=== PATIENT | female | born 1945 | race Caucasian/White ===

== ENCOUNTER → 2022-03-25 | Outpatient (CLI) | payer MEDICARE, OTHER ==
[~2022-03-25] VITALS: Ht 160 cm; Wt 83.9 kg
== END | disposition home or self-care (01) ==
LOC: Rad HDHVI 12:56 → EDSEX 12:56
PROVIDERS: ATTEND Internal Medicine Cardiovascular Disease
DX: R06.02 Shortness of breath (principal); R42 Dizziness and giddiness; E78.5 Hyperlipidemia, unspecified; I10 Essential (primary) hypertension; Z82.49 Family history of ischemic heart disease and other diseases of the circulatory system
CPT/HCPCS: 78452; 93017; 96374; A9500

== ENCOUNTER → 2022-05-02 | Outpatient (CLI) | payer MEDICARE ==
[2022-05-02 12:23] LABS: Urine Blood Negative /uL (Negative)
[2022-05-02 12:32] LABS: Basophils # (auto) 0.1 10 ^3/uL (0-0.2); Basophils % (auto) 0.9 % (0.0-2.0); Eosinophils # (auto) 0.1 10 ^3/uL (0-0.8); Eosinophils % (auto) 1.8 % (0.0-7.0); Hematocrit 34.1 % (36.0-46.0); Hemoglobin 11.2 g/dL (12.2-16.2); Lymphocytes # (auto) 2.2 10 ^3/uL (0.4-5.4); Lymphocytes % (auto) 30.9 % (10.0-50.0); Mean Corpuscular Hemoglobin 31.9 pg (28.0-32.0); Mean Corpuscular Hgb Conc. 32.8 g/dL (32.0-36.0); Mean Corpuscular Volume 97.2 fL (80.0-100.0); Monocytes # (auto) 0.7 10 ^3/uL (0-1.3); Neutrophils % (auto) 56.4 % (37.0-80.0); Red Blood Cells 3.51 10^6/uL (4.0-5.20); Red Cell Distribution Width 13.8 % (11.8-14.3); White Blood Cell 7.1 10^3/uL (4.4-10.8)
[2022-05-02 12:41] LABS: Albumin 3.3 g/dL (3.4-5.0); Potassium 4.2 mmol/L (3.5-5.1)
[2022-05-02 12:49] LABS: BUN/Creatinine Ratio 13.5; Bilirubin, Total 0.5 mg/dL (0.2-1.0); Calcium 9.1 mg/dL (8.5-10.1); Total Protein 6.6 g/dL (6.4-8.2)
== END | disposition home or self-care (01) ==
LOC: LAB 09:02
PROVIDERS: ATTEND Internal Medicine Cardiovascular Disease
DX: I10 Essential (primary) hypertension (principal); E55.9 Vitamin D deficiency, unspecified; D51.3 Other dietary vitamin B12 deficiency anemia; D64.9 Anemia, unspecified; E11.9 Type 2 diabetes mellitus without complications; R00.2 Palpitations; R53.1 Weakness; R30.0 Dysuria
CPT/HCPCS: 36415; 80053; 80061; 81003; 82306; 82607; 83036; 84439; 84443; 85025; 87086

== ENCOUNTER 2024-01-01 19:12 | Inpatient (IN) | payer MEDICARE, OTHER ==
[~2024-01-01] VITALS: Ht 160 cm; Wt 77.1 kg
[2024-01-01] MEDS: ATROPINE SULF 1 MG/10ml SYR IV ONE (20:03)
[2024-01-01] MEDS: DOPamine 1600MCG/ML D5W 250 ML IV SCH (20:04)
[2024-01-01] MEDS: DOPamine 1600MCG/ML D5W 250 ML IV ONE (20:04)
[2024-01-01 20:08] LABS: Basophils # (auto) 0 10 ^3/uL (0-0.2); Basophils % (auto) 0.7 % (0.0-2.0); Eosinophils # (auto) 0.1 10 ^3/uL (0-0.8); Eosinophils % (auto) 1.3 % (0.0-7.0); Hematocrit 28.4 % (36.0-46.0); Hemoglobin 9.4 g/dL (12.2-16.2); Lymphocytes # (auto) 2.1 10 ^3/uL (0.4-5.4); Mean Corpuscular Hemoglobin 31.8 pg (28.0-32.0); Mean Corpuscular Hgb Conc. 33.1 g/dL (32.0-36.0); Mean Corpuscular Volume 95.8 fL (80.0-100.0); Monocytes # (auto) 0.6 10 ^3/uL (0-1.3); Monocytes % (auto) 8.8 % (0.0-12.0); Neutrophils # (auto) 3.5 10 ^3/uL (1.6-8.6); Neutrophils % (auto) 55.2 % (37.0-80.0); Nucleated Red Blood Cells % 0.3 %; Red Blood Cells 2.97 10^6/uL (4.0-5.20); Red Cell Distribution Width 14.9 % (11.8-14.3); White Blood Cell 6.3 10^3/uL (4.4-10.8)
[2024-01-01 20:15] VITALS: PULSE 61; RESP 22; O2SAT 93
[2024-01-01 20:27] LABS: Alanine Aminotransferase 12 U/L (7-40); Albumin 3.7 g/dL (3.2-4.8); Alkaline Phosphatase 65 U/L (46-116); Anion Gap 7 (5-15); Aspartate Aminotransferase 19 U/L (13-40); BUN/Creatinine Ratio 13.3 (10.0-20.0); Bilirubin, Total 0.5 mg/dL (0.2-1.0); Blood Urea Nitrogen 15 mg/dL (9-23); Calcium 9.2 mg/dL (8.5-10.1); Carbon Dioxide 24 mmol/L (20-30); Chloride 103 mmol/L (98-107); Glucose 116 mg/dL (74-106); Magnesium 1.7 mg/dL (1.6-2.6); Sodium 134 mmol/L (136-145); Total Protein 5.6 g/dL (5.7-8.2)
[2024-01-01 20:29] LABS: INR 1.03 (0.9-1.15); Partial Thromboplastin Time 23.4 SEC (24.5-34.5); Prothrombin Time 10.9 sec (9.3-11.8)
[2024-01-01 20:44] LABS: Acetaminophen < 2.0 UG/ML (10.0-20.0)
[2024-01-01 21:07] LABS: Salicylate < 3.0 mg/dL (2.8-20.0)
[2024-01-01 21:15] LABS: Urine Amorphous Crystal FEW /hpf (None Seen); Urine Bacteria FEW /hpf (None Seen); Urine Blood Negative /uL (Negative); Urine Clarity Clear (Clear); Urine Color Colorless (Yellow); Urine Protein, UAD Negative (Negative); Urine Specific Gravity 1.005 (1.001-1.035); Urine Urobilinogen Normal (Negative); Urine WBC 8 /hpf (0 - 5); Urine pH 6.5 (5.0-9.0)
[2024-01-01] MEDS ORDERED: ONDANSETRON HCL 4 MG/2 ML VIAL IV PRN (21:15)
[2024-01-01] MEDS ORDERED: DOCUSATE SOD 100 MG CAP PO PRN (21:15)
[2024-01-01] MEDS ORDERED: NITROGLYCERIN 0.4 MG SL TAB SL PRN (22:00)
[2024-01-01] MEDS: SODIUM CHLORIDE 0.9% 1,000 ML IV SCH (23:11)
[2024-01-02 05:28] LABS: Basophils # (auto) 0.1 10 ^3/uL (0-0.2); Basophils % (auto) 0.7 % (0.0-2.0); Eosinophils # (auto) 0.1 10 ^3/uL (0-0.8); Hematocrit 34.3 % (36.0-46.0); Hemoglobin 11.6 g/dL (12.2-16.2); Lymphocytes # (auto) 2.2 10 ^3/uL (0.4-5.4); Lymphocytes % (auto) 22.6 % (10.0-50.0); Mean Corpuscular Hemoglobin 32.1 pg (28.0-32.0); Mean Corpuscular Hgb Conc. 33.7 g/dL (32.0-36.0); Mean Corpuscular Volume 95.2 fL (80.0-100.0); Monocytes # (auto) 0.8 10 ^3/uL (0-1.3); Monocytes % (auto) 8.5 % (0.0-12.0); Neutrophils # (auto) 6.5 10 ^3/uL (1.6-8.6); Neutrophils % (auto) 67.2 % (37.0-80.0); Nucleated Red Blood Cells % 0.3 %; Red Blood Cells 3.61 10^6/uL (4.0-5.20); Red Cell Distribution Width 14.9 % (11.8-14.3); White Blood Cell 9.6 10^3/uL (4.4-10.8)
[2024-01-02 05:42] LABS: Alanine Aminotransferase 13 U/L (7-40); Albumin 4.4 g/dL (3.2-4.8); Alkaline Phosphatase 77 U/L (46-116); Anion Gap 9 (5-15); BUN/Creatinine Ratio 13.3 (10.0-20.0); Blood Urea Nitrogen 11 mg/dL (9-23); Calcium 10.1 mg/dL (8.5-10.1); Carbon Dioxide 26 mmol/L (20-30); Chloride 105 mmol/L (98-107); Glucose 115 mg/dL (74-106); Potassium 3.6 mmol/L (3.5-5.1); Sodium 140 mmol/L (136-145)
[2024-01-02 05:43] LABS: Aspartate Aminotransferase 19 U/L (13-40); Bilirubin, Total 0.7 mg/dL (0.2-1.0); Total Protein 6.8 g/dL (5.7-8.2)
[2024-01-02 08:27] VITALS: PULSE 50; RESP 14; O2SAT 95
[2024-01-02 15:20] VITALS: BP 150/66; PULSE 76; RESP 21; TEMP 98.9; O2SAT 98
[2024-01-02] MEDS ORDERED: LOSA-535 PO (16:57)
[2024-01-02] MEDS ORDERED: OMEP1CAP70 PO (16:57)
[2024-01-02] MEDS ORDERED: DILT-29 PO (16:57)
[2024-01-02] MEDS ORDERED: CYCL-614 PO (16:58)
[2024-01-02] MEDS ORDERED: SIMV10TA20 PO (16:58)
[2024-01-02 17:00] VITALS: BP 165/66; PULSE 71; RESP 21; TEMP 98.7; O2SAT 94
[2024-01-02] MEDS: hydrALAZINE HCL 20 MG/ML VL IV ONE (18:40)
[2024-01-02] MEDS: MAGNESIUM SULFATE 1GM/100ML 100 ML IV ONE (18:41)
[2024-01-02 20:00] VITALS: BP 161/64; PULSE 82; PULSE 89; RESP 18; TEMP 98.6; O2SAT 96
[2024-01-02 21:54] VITALS: BP 161/64; PULSE 89; RESP 18; TEMP 98.6; O2SAT 96
[2024-01-02] MEDS: hydrALAZINE HCL 20 MG/ML VL IV PRN (23:53)
[2024-01-02] MEDS: ACETAMINOPHEN 325 MG TAB PO PRN (23:54)
[2024-01-03 05:23] VITALS: BP 147/69; PULSE 91; RESP 18; TEMP 97.9; O2SAT 95
[2024-01-03 06:03] LABS: Anion Gap 8 (5-15); Carbon Dioxide 25 mmol/L (20-30); Chloride 106 mmol/L (98-107); Potassium 3.6 mmol/L (3.5-5.1); Sodium 139 mmol/L (136-145)
[2024-01-03 06:05] LABS: Calcium 9.2 mg/dL (8.5-10.1)
[2024-01-03 06:06] LABS: Basophils # (auto) 0.1 10 ^3/uL (0-0.2); Basophils % (auto) 0.8 % (0.0-2.0); Eosinophils # (auto) 0.1 10 ^3/uL (0-0.8); Eosinophils % (auto) 1.5 % (0.0-7.0); Hematocrit 31.3 % (36.0-46.0); Hemoglobin 10.4 g/dL (12.2-16.2); Lymphocytes # (auto) 2.2 10 ^3/uL (0.4-5.4); Lymphocytes % (auto) 31.6 % (10.0-50.0); Mean Corpuscular Hgb Conc. 33.4 g/dL (32.0-36.0); Mean Corpuscular Volume 95.8 fL (80.0-100.0); Monocytes # (auto) 0.7 10 ^3/uL (0-1.3); Monocytes % (auto) 10.2 % (0.0-12.0); Neutrophils # (auto) 3.8 10 ^3/uL (1.6-8.6); Neutrophils % (auto) 55.9 % (37.0-80.0); Nucleated Red Blood Cells % 0.1 %; Red Blood Cells 3.26 10^6/uL (4.0-5.20); Red Cell Distribution Width 14.9 % (11.8-14.3); White Blood Cell 6.9 10^3/uL (4.4-10.8)
[2024-01-03 06:09] LABS: Glucose 96 mg/dL (74-106)
[2024-01-03 06:10] LABS: Magnesium 1.9 mg/dL (1.6-2.6)
[2024-01-03 07:43] LABS: BUN/Creatinine Ratio 18.8 (10.0-20.0); Blood Urea Nitrogen 15 mg/dL (9-23)
[2024-01-03 08:00] VITALS: PULSE 70
[2024-01-03 09:00] VITALS: BP 155/73; PULSE 88; RESP 18; TEMP 98.1; O2SAT 94
[2024-01-03] MEDS: LOSARTAN POTASSIUM 50 MG TAB PO SCH (10:46)
[2024-01-03] MEDS: hydroCHLOROthiazide 25 MG TAB PO SCH (10:47)
[2024-01-03 12:46] VITALS: BP 168/86; PULSE 70; RESP 18; TEMP 97.9; O2SAT 96
[2024-01-03] MEDS ORDERED: HYDR25TA5 PO (13:09)
== END 2024-01-03 16:40 | disposition home or self-care (01) | DRG 312 ==
LOC: ER 19:12 → EDBD 19:12 → TELE 21:48 → TELE-WESTW 01-02 13:05
PROVIDERS: ADMIT Nurse Practitioner Family; ATTEND Internal Medicine
DX: I95.2 Hypotension due to drugs (principal); I10 Essential (primary) hypertension; E78.5 Hyperlipidemia, unspecified; E66.9 Obesity, unspecified; T50.3X5A Adverse effect of electrolytic, caloric and water-balance agents, initial encounter; Z79.899 Other long term (current) drug therapy; Z88.5 Allergy status to narcotic agent; Z88.2 Allergy status to sulfonamides; Z68.30 Body mass index [BMI] 30.0-30.9, adult; Y92.89 Other specified places as the place of occurrence of the external cause; R00.1 Bradycardia, unspecified
CPT/HCPCS: 36415; 80048; 80053; 80320; 80329; 81001; 83605; 83735; 83880; 84443; 84484; 85025; 85610; 85730; 87040; 93005; 93306; G0378

== ENCOUNTER → 2024-07-16 | Outpatient (CLI) | payer OTHER, MEDICARE ==
[~2024-07-16] MED LIST: CYCL-614 PO; HYDR25TA5 PO; LOSA-535 PO; OMEP1CAP70 PO; SIMV10TA20 PO
== END | disposition home or self-care (01) ==
LOC: LAB 14:39
PROVIDERS: ATTEND Student in an Organized Health Care Education/Training Program
DX: I10 Essential (primary) hypertension (principal); R00.2 Palpitations; E78.5 Hyperlipidemia, unspecified
CPT/HCPCS: 82088; 82533; 83835; 84244

== ENCOUNTER → 2024-07-26 | Outpatient (CLI) | payer OTHER, MEDICARE ==
[2024-07-26 16:36] LABS: Urine Bacteria FEW /hpf (None Seen); Urine Blood Negative /uL (Negative); Urine Clarity Clear (Clear); Urine Color Colorless (Yellow); Urine Protein, UAD Negative (Negative); Urine Specific Gravity 1.005 (1.001-1.035); Urine Urobilinogen Normal (Negative); Urine WBC 1 /hpf (0 - 5)
== END | disposition home or self-care (01) ==
LOC: LAB 15:41
PROVIDERS: ATTEND Student in an Organized Health Care Education/Training Program
DX: I10 Essential (primary) hypertension (principal); R00.2 Palpitations; E78.5 Hyperlipidemia, unspecified
CPT/HCPCS: 81001

== ENCOUNTER 2024-09-14 11:19 | Emergency (ER) | payer OTHER ==
[~2024-09-14] VITALS: Ht 157.5 cm; Wt 67.0 kg
[2024-09-14] MEDS: cloNIDine HCL 0.1 MG TAB PO ONE (11:57)
--- NOTE | 2024-09-14 12:23 | ED.PDOC ---
Musculoskeletal HPI Comments 79 y/o F presents to the ED with CC of s/p fall. Patient states, that this morning around 1000 she went to bring her trash cans in, when she fell and slipped on ice landing on her right wrist. Patient c/o current right wrist pain. Patient denies LOC, hitting her head, or head, neck, and back pain. Chief Complaint: Upper Extremity Time Seen by MD: 12:17 Primary Care Provider: atul Reviewed Notes: Nurses Notes, Medications, Allergies Allergies: Coded Allergies: Codeine (Verified Allergy, Unknown, 03/25/22) Sulfa Antibiotics (Verified Allergy, Unknown, 03/25/22) Home Meds Active Scripts Hydrocodone-Acetaminophen (Hydrocodone Bitartrate/AC 5-325 mg) 1 Tab Tab, 1 TAB PO Q12HP PRN for 5 Days, #10 TAB Prov:ANSHUL WALDROP MD 09/14/24 Hctz (Hydrochlorothiazide) 25 Mg Tab, 25 MG PO DAILY, #30 TAB 5 Refills Prov:NGOZI MCKEON MD 01/03/24 Reported Medications Cyclobenzaprine HCl (Cyclobenzaprine Hydrochlo) 5 Mg Tab, 1 TAB PO BID 01/02/24 Simvastatin (Simvastatin) 10 Mg Tab, 1 TAB PO 01/02/24 Omeprazole (Omeprazole Dr) 20 Mg Cap, 1 CAP PO DAILY 01/02/24 Losartan Potassium (Losartan Potassium) 100 Mg Tab, 1 TAB PO DAILY 01/02/24 Information Source: Patient Mode of Arrival: Wheelchair Location: Right Extremity Location: Wrist Timing: Hours Prehospital treatment: None Severity: Mild Able to Move Extremity: Yes Bear Weight: Limited Pain: Mild Mechanism: None Circumstances: Fall Onset of Symptoms: After Trauma Symptoms: Pain DVT Risk Factors: NONE Associated signs and symptoms: None Past Medical History PAST MEDICAL HISTORY: High Lipids, HTN Surgical History: Hysterectomy CUSTOMER ACCOUNT TECHNICIAN History: No Pertinent CUSTOMER ACCOUNT TECHNICIAN History Family History Family History: Reviewed,noncontributory to illness Social History Smoker: Non-Smoker Alcohol: Occasionally Drugs: Denies Drug Use Lives In: Home Constitutional: denies: chills, diaphoresis, fatigue, fever, malaise, sweats, weakness, others EENTM: denies: blurred vision, double vision, ear bleeding, ear discharge, ear drainage, ear pain, ear ringing, eye pain, eye redness, hearing loss, mouth pain, mouth swelling, nasal discharge, nose bleeding, nose congestion, nose pain, photophobia, tearing, throat pain, throat swelling, voice changes, others Respiratory: denies: cough, hemoptysis, orthopnea, SOB at rest, shortness of breath, SOB with excertion, stridor, wheezing, others Cardiovascular: denies: chest pain, dizzy spells, diaphoresis, Dyspnea on exertion, edema, irregular heart beat, left arm pain, lightheadedness, palpitations, PND, syncope, others Gastrointestinal: denies: abdomen distended, abdominal pain, blood streaked bowels, constipated, diarrhea, dysphagia, difficulty swallowing, hematemesis, melena, nausea, poor appetite, poor fluid intake, rectal bleeding, rectal pain, vomiting, others Genitourinary: denies: abnormal vagina bleeding, burning, dyspareunia, dysuria, flank pain, frequency, hematuria, incontinence, pain, , vagina discharge, urgency, others Neurological: denies: dizziness, fainting, headache, left sided numbness, left sided weakness, numbness, paresthesia, pre-existing deficit, right sided numb ness, right sided weakness, seizure, speech problems, tingling, tremors, weakness, others Musculoskeletal: reports: muscle pain; denies: back pain, gout, joint pain, joint swelling, muscle stiffness, neck pain, others Integumetry: denies: bruises, change in color, change in hair/nails, dryness, laceration, lesions, lumps, rash, wounds, others Allergic/Immunocompromised: denies: Difficulty Healing, Frequent Infections, Hives, Itching, others Hematologic/Lymphatic: denies: anemia, blood clots, easy bleeding, easy bruising, swollen glands, others Endocrine: denies: excessive hunger, excessive sweating, excessive thirst, excessive urination, flushing, intolerance to cold, intolerance to heat, unexplained weight gain, unexplained weight loss, others Psychiatric: denies: anxiety, bipolar disorder, depression, hopeless, panic disorder, schizophrenia, sleepless, suicidal, others All Other Systems: Reviewed and Negative Physical Exam General Appearance: Moderate Distress HEENT: Normal ENT Inspection, Pharynx Normal, TMs Normal Neck: Full Range of Motion, Non-Tender, Normal, Normal Inspection Respiratory: Chest Non-Tender, Lungs Clear, No Accessory Muscle Use, No Respiratory Distress, Normal Breath Sounds Cardiovascular: No Edema, No JVD, No Murmur, No Gallop, Normal Peripheral Pulses, Regular Rate/Rhythm Breast Exam: Deferred Gastrointestinal: No Organomegaly, Non Tender, No Pulsatile Mass, Normal Bowel Sounds, Soft Genitalia: Deferred Pelvic: Deferred Rectal: Deferred Extremities: No calf tenderness, Normal capillary refill, No pedal edema Musculoskeletal : Location: Right Extremity Location: Wrist Apperance: Swelling, Limited ROM, Tenderness: Moderate Neurologic: Alert, wedding planner II-XII nml as Tested, No Motor Deficits, Normal Affect, Normal Mood, No Sensory Deficits Cerebellar Function: Normal Reflexes: Normal Skin: Dry, Normal Color, Warm Lymphatic: No Adenopathy Was a procedure done? Was a procedure done?: No EKG EKG : Pulse Rate (adult): 61 Gardner: Normal Cardiac Rhythm: NSR Block: None Hypertrophy: None ST: Normal Differential Diagnosis EXT Differential Diagnosis: Fracture, Sprain, Dislocation, Strain X-Ray, Labs, Meds, VS Vital Signs Date Time Temp Pulse Resp B/P (MAP) Pulse Ox O2 Delivery O2 Flow Rate FiO2 09/14/24 12:23 61 09/14/24 11:57 209/76 09/14/24 11:52 61 09/14/24 11:40 98.0 68 18 209/76 (120) 99 Current Medications Medications (Trade) Dose Ordered Sig/Stacey Route Start Time Stop Time Status Last Admin Clonidine HCl (Catapres Tablet) 0.2 mg ONCE ONCE PO 09/14/24 12:00 09/14/24 12:01 DC 09/14/24 11:57 R WRIST XR: FINDINGS/IMPRESSION: : Osteopenia. Displaced and comminuted fracture of the distal radial metaphysis with intra- articular extension. Mildly displaced fracture of the styloid process of the ulna. Diffuse soft-tissue swelling around the wrist joint. ATED BY: ANICETO SOLITARIO MD DICTATED DATE/TIME: 09/14/24 1222 SIGNED BY: ANICETO SOLITARIO MD SIGNED DATE/TIME: 09/14/24 1222 CC: The patient was placed in a sugar-tong splint. The patient was now also placed in a sling The patient was given clonidine for the elevated blood pressure. We did contact the orthopedic surgeon and the patient will be splinted and sent to the orthopedic surgeon for follow up. The patient was given [place] here in the emergency department's for the pain The patient was also given a prescription for [place] The patient will return to the emergency department's the condition worsens. Images Reviewed?: Images reviewed and evaluated by me Time of 1ST Reevaluation: 12:47 Reevaluation 1ST: Unchanged Patient Education/Counseling: Diagnosis, Treatment, Prognosis, Need For Follow Up Family Education/Counseling: No Family Present Departure 1 Departure Time of Disposition: 12:33 Impression: Primary Impression: Hypertensive urgency Additional Impression: Right wrist fracture Qualified Codes: S62.101A - Fracture of unspecified carpal bone, right wrist, initial encounter for closed fracture Disposition: 01 HOME / SELF CARE / HOMELESS Condition: Fair e-Prescriptions Hydrocodone-Acetaminophen (Hydrocodone Bitartrate/AC 5-325 mg) 1 Tab Tab 1 TAB PO Q12HP PRN for 5 Days, #10 TAB Prov: ANSHUL WALDROP MD 09/14/24 Discharged With: Self Critical Care Note Critical Care Time?: No Stability Stability form required: No Heart Score Heart Score: Heart Score Response (Comments) Value History N/A 0 EKG N/A 0 Age N/A 0 Risk Factors N/A 0 Troponin N/A 0 Total 0 I personally scribed for ANSHUL WALDROP MD ([email or web address]) on 09/14/24 at 12:23. Electronically submitted by Patricia Forte ([email or web address]). I personally scribed for ANSHUL WALDROP MD ([email or web address]) on 09/14/24 at 12:30. Electronically submitted by Patricia Forte ([email or web address]). ANSHUL WALDROP MD Sep 14, 2024 12:23
--- NOTE | 2024-09-14 12:25 | DVH ---
CLINICAL INDICATION: r/o fx TECHNIQUE: XY R WRIST 3+ VIEW XRAY Comparison: None FINDINGS/IMPRESSION: : Osteopenia. Displaced and comminuted fracture of the distal radial metaphysis with intra-articular extension. Mildly displaced fracture of the styloid process of the ulna. Diffuse soft-tissue swelling around the wrist joint.
[2024-09-14] MEDS ORDERED: HYDR-4902 PO (12:34)
[2024-09-14 13:00] VITALS: PULSE 63; RESP 17; TEMP 98.1; O2SAT 96
[2024-09-14] MEDS: HYDROcodone-ACET 5/325MG TAB PO ONE (13:09)
[2024-09-14 13:17] VITALS: BP 104/51
--- NOTE | 2024-09-14 20:45 | ECG ---
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
== END 2024-09-14 13:15 | disposition home or self-care (01) ==
LOC: ER 11:19
DX: S52.571A Other intraarticular fracture of lower end of right radius, initial encounter for closed fracture (principal); S52.611A Displaced fracture of right ulna styloid process, initial encounter for closed fracture; I16.0 Hypertensive urgency; I10 Essential (primary) hypertension; Z79.899 Other long term (current) drug therapy; Z88.2 Allergy status to sulfonamides; Z88.5 Allergy status to narcotic agent; Z90.710 Acquired absence of both cervix and uterus; W01.0XXA Fall on same level from slipping, tripping and stumbling without subsequent striking against object, initial encounter; Y93.29 Activity, other involving ice and snow; Y92.89 Other specified places as the place of occurrence of the external cause; Y99.8 Other external cause status
CPT/HCPCS: 29125; 73110; 93005

== ENCOUNTER 2025-04-18 11:59 | Outpatient (CLI) | payer OTHER ==
[~2025-04-18 11:59] MED LIST changes: +HYDR-4902 PO
[2025-04-18 13:02] LABS: INR 1.84 (0.9-1.15); Prothrombin Time 18.4 sec (9.3-11.8)
== END 2025-04-18 17:00 | disposition home or self-care (01) ==
LOC: LAB 11:59
PROVIDERS: ATTEND Internal Medicine
DX: I48.0 Paroxysmal atrial fibrillation (principal); Z51.81 Encounter for therapeutic drug level monitoring
CPT/HCPCS: 36415; 85610

== ENCOUNTER 2025-05-26 10:43 | Outpatient (CLI) | payer OTHER ==
[2025-05-26] MEDS ORDERED: LIDOCAINE 2%HCL (LOCAL ANESTH.) INJ 10ml MDV ONE (11:08)
[2025-05-26] MEDS ORDERED: methylPREDNISolone ACETATE 80 MG/ML VL ONE (11:14)
[2025-05-26] MEDS ORDERED: IOHEXOL 300 MG/ML 100ML BOTTLE IJ ONE (11:14)
[2025-05-26] MEDS ORDERED: BUPIVACAINE HCL 0.25% P/F 10 ML VIAL ONE (11:14)
--- NOTE | 2025-05-26 12:20 | DVH ---
XY FLUOROGUIDANCE FOR NEEDLE PLAC, XY R WRIST 2 VIEW XRAY HISTORY: RIGHT WRIST PAIN COMPARISON: None PROCEDURE: The risks and benefits of the procedure including infection, hemorrhage and technical failure were di scussed with the patient, who agreed to proceed. The patient was positioned supine on the fluoroscopy table. Time out was performed. The right wrist w as localized using fluoroscopy, and the location on the skin for needle insertion was marked. The reg ion was prepped and draped using routine sterile technique. Approximately 1 cc of lidocaine was injec kaycee for local anesthesia. A 25 gauge spinal needle was inserted, and intra-articular location was con firmed by injection of less than 1 cc of iodinated contrast. 1 cc of methylprednisolone (80 mg/cc) an d 1 cc of Bupivacaine (0.25%) was then injected without complication. Fluoroscopy time was 0.4. DAP 1.2. The patient was informed of the temporary precautions to take following the procedure as well as of t he potential signs and symptoms which may indicate the need to contact physician, and expressed unde rstanding of this discussion. IMPRESSION: Steroid and anesthetic injection of the right wrist.
== END 2025-05-26 17:00 | disposition home or self-care (01) ==
LOC: XYW 10:43
PROVIDERS: ATTEND Internal Medicine
DX: M19.131 Post-traumatic osteoarthritis, right wrist (principal); Z79.899 Other long term (current) drug therapy; Z88.1 Allergy status to other antibiotic agents; Z88.2 Allergy status to sulfonamides; Z88.5 Allergy status to narcotic agent; Z82.49 Family history of ischemic heart disease and other diseases of the circulatory system
CPT/HCPCS: 20605; 77002; J1010; J2003; J3490; Q9967; 73100